=== PATIENT | male | born 1950 | race Caucasian/White ===

== ENCOUNTER 2016-11-28 18:29 | Emergency (ER) | payer OTHER ==
--- NOTE | 2016-11-28 21:24 | ED ORDER SUMMARY ---
..... Patient: MARIA ELENA MCCALL OrderSheet [facility] VisitID: [id number] [place] [address] 66y, M Registration Date/Time: 11/28/2016 ORDER SHEET Weight: 90.2 kg (stated) Allergies: Penicillins GENERAL ORDERS: CBC w Diff Urgent (18:58 11/28/2016 KHoerner verbal order read back to Bartolome Luna) (Cancelled: Wrong Jenpiaq54:59 KHoerner) CMP Urgent (18:58 11/28/2016 KHoerner verbal order read back to Bartolome Luna) (Cancelled: Wrong [id number] KHoerner) TSH Urgent (18:58 11/28/2016 KHoerner verbal order read back to Bartolome Luna) (Cancelled: Wrong Vfpubop84:59 KHoerner) EKG - ER Stat (18:58 11/28/2016 KHoerner verbal order read back to Bartolome Luna) (Cancelled: Wrong Uvkvvxh23:59 KHoerner) CBC w Diff Urgent (18:59 11/28/2016 Bartolome Luna) (Ack 19:01 KHoerner) (19:24 KKnebel R.N.) CMP Urgent (18:59 11/28/2016 Bartolome Luna) (Ack 19:01 TRINAoerner) (19:24 KKnebel R.N.) UA-Culture if indicated Urgent (18:59 11/28/2016 Bartolome Luna) (Ack 19:01 TRINAoerner) (Cancelled: Unable to Qifttuu32:07 JRomanelli R.N.) Amylase Urgent (18:59 11/28/2016 Bartolome Luna) (Ack 19:01 TRINAoerner) (19:24 KKnebel R.N.) Lipase Urgent (18:59 11/28/2016 Bartolome Luna) (Ack 19:01 TRINAoerner) (19:24 KKnebel R.N.) US Abdomen Limited (Yes) (GB/Liver) Urgent (20:12 11/28/2016 Bartolome Luna) (Ack 20:14 [facility] (21:30 JRomanelli R.N.) Chest 2V Urgent (20:31 11/28/2016 Bartolome Luna) (Ack 20:33 CHagerty ER Magneto Specialist) (20:46 [facility] Blood Culture (No) (N/A) Urgent (20:48 11/28/2016 Bartolome Luna) (Ack 20:50 CHagerty ER Magneto Specialist) (21:20 CHagerty ER Magneto Specialist) Lactic Acid for Sepsis Protocol Urgent (20:49 11/28/2016 Bartolome Luna) (Ack 20:50 CHagerty ER Magneto Specialist) (21:20 CHagerty ER Magneto Specialist) PCT (Procalcitonin) Urgent (20:49 11/28/2016 Bartolome Luna) (Ack 20:50 CHagerty ER Magneto Specialist) (21:20 CHagerty ER Magneto Specialist) MEDICATION ORDERS: IV FLUIDS: IV NS : initial bolus 1000 mL (1000 mL/hr), then 1000 mL/hr for X1 (NOW) (18:58 11/28/2016 Bartolome Luna) (19:48 Mayo R.N.) Zofran IV 4 mg (NOW) (18:59 11/28/2016 Bartolome Luna) (19:49 Mayo R.N.) Famotidine IV 20 mg/50mL (NOW) (18:59 11/28/2016 Bartolome Luna) (19:49 Mayo R.N.) Toradol IV 30 mg (NOW) (20:31 11/28/2016 Bartolome Luna) (20:53 KyQuiveyvan R.N.) Azithromycin IV 500 mg/250 mL (NOW) (20:50 11/28/2016 Bartolome Luna) (21:30 Mayo R.N.) ORDER SHEET NOTES: [Electronically signed by Abdirahman Engle R.N. (23:09 11/28/2016)] [Electronically signed by Bo Saravia Dr. (08:37 11/29/2016)] [Electronically locked/signed by Abdirahman Engle R.N. (23:09 11/28/2016)]
--- NOTE | 2016-11-28 21:24 | ED ORDER SUMMARY ---
..... Patient: MARIA ELENA MCCALL OrderSheet [facility] VisitID: [id number] [place] [address] 66y, M Registration Date/Time: 11/28/2016 ORDER SHEET Weight: 90.2 kg (stated) Allergies: Penicillins GENERAL ORDERS: CBC w Diff Urgent (18:58 11/28/2016 KHoerner verbal order read back to Bartolome Luna) (Cancelled: Wrong Uqyvmqi01:59 KHoerner) CMP Urgent (18:58 11/28/2016 KHoerner verbal order read back to Bartolome Luna) (Cancelled: Wrong Uoqqynz30:59 KHoerner) TSH Urgent (18:58 11/28/2016 KHoerner verbal order read back to Bartolome Luna) (Cancelled: Wrong Wfhotqk06:59 KHoerner) EKG - ER Stat (18:58 11/28/2016 KHoerner verbal order read back to Bartolome Luna) (Cancelled: Wrong Tkkepdn57:59 KHoerner) CBC w Diff Urgent (18:59 11/28/2016 Bartolome Luna) (Ack 19:01 KHoerner) (19:24 KKnebel R.N.) CMP Urgent (18:59 11/28/2016 Bartolome Luna) (Ack 19:01 TRINAoerner) (19:24 KKnebel R.N.) UA-Culture if indicated Urgent (18:59 11/28/2016 Bartolome Luna) (Ack 19:01 TRINAoerner) (Cancelled: Unable to Waymdmd07:07 JRomanelli R.N.) Amylase Urgent (18:59 11/28/2016 Bartolome Luna) (Ack 19:01 TRINAoerner) (19:24 KKnebel R.N.) Lipase Urgent (18:59 11/28/2016 Bartolome Luna) (Ack 19:01 TRINAoerner) (19:24 KKnebel R.N.) US Abdomen Limited (Yes) (GB/Liver) Urgent (20:12 11/28/2016 Bartolome Luna) (Ack 20:[address] [facility] Track Machine Operator Repairer) (21:30 JRomanelli R.N.) Chest 2V Urgent (20:31 11/28/2016 Bartolome Luna) (Ack 20:33 [facility]agerty ER Track Machine Operator Repairer) (20:46 [facility] Blood Culture (No) (N/A) Urgent (20:48 11/28/2016 Bartolome Luna) (Ack 20:50 CHagerty ER Track Machine Operator Repairer) (21:20 CHagerty ER Track Machine Operator Repairer) Lactic Acid for Sepsis Protocol Urgent (20:49 11/28/2016 Bartolome Luna) (Ack 20:50 CHagerty ER Track Machine Operator Repairer) (21:20 CHagerty ER Track Machine Operator Repairer) PCT (Procalcitonin) Urgent (20:49 11/28/2016 Bartolome Luna) (Ack 20:50 CHagerty ER Track Machine Operator Repairer) (21:20 CHagerty ER Track Machine Operator Repairer) MEDICATION ORDERS: IV FLUIDS: IV NS : initial bolus 1000 mL (1000 mL/hr), then 1000 mL/hr for X1 (NOW) (18:58 11/28/2016 Bartolome Luna) (19:48 Mayo R.N.) Zofran IV 4 mg (NOW) (18:59 11/28/2016 Bartolome Luna) (19:49 Mayo R.N.) Famotidine IV 20 mg/50mL (NOW) (18:59 11/28/2016 Bartolome Luna) (19:49 Mayo R.N.) Toradol IV 30 mg (NOW) (20:31 11/28/2016 Bartolome Luna) (20:53 yKQuiveyvan R.N.) Azithromycin IV 500 mg/250 mL (NOW) (20:50 11/28/2016 Bartolome Luna) (21:30 Mayo R.N.) ORDER SHEET NOTES: [Electronically signed by Abdirahman Engle R.N. (23:09 11/28/2016)] [Electronically signed by Bo Saravia Dr. (08:37 11/29/2016)] [Electronically locked/signed by Abdirahman Engle R.N. (23:09 11/28/2016)]
--- NOTE | 2016-11-28 21:24 | ED CLINICAL REPORT ---
Clinical Report - Physicians/Mid Levels [facility] [address] [place] [address] 11/28/2016 18:31 Patient: MARIA ELENA MCCALL Time Seen: 18:45; initial patient contact. Arrived- By private vehicle. Historian- patient. HISTORY OF PRESENT ILLNESS Chief Complaint: VOMITING. This started about 1 1/2 weeks ago and is still present. It was gradual in onset and has been intermittent. The patient has had nausea and vomiting. No diarrhea, black stools, bloody stools, abdominal pain or constipation. Last bowel movement: today. The illness is described as moderate. Similar symptoms previously: None. Recent medical care: The patient was seen recently in the office (Yesterday, IVF and labs, nl WBC and mildly elevated bili). REVIEW OF SYSTEMS The patient has had fever, muscle aches and a headache. No difficulty with urination, dark urine, dizziness, cough or chest pain. No difficulty breathing. All systems otherwise negative, except as recorded above. PAST HISTORY Hypertension. Environmental Allergies. Thyroid Disease. Benign Prostatic Hypertrophy. Urinary Calculi. Constipation. Ureterolithiasis. Diverticulosis. Diverticulitis. Renal Colic. Hypothyroidism. Nephrolithiasis. Additional Surgeries: no known surgeries. Medications: Citalopram Hydrobromide Oral. Finasteride Oral. Levothyroxine Sodium Oral. Tamsulosin HCl Oral. Aspirin Oral. Allergies: Penicillins. SOCIAL HISTORY Never smoker. Occasional alcohol use. No drug use. ADDITIONAL NOTES The nursing notes have been reviewed. PHYSICAL EXAM Vital Signs: 11/28/2016 18:37 BP: 147/78. HR: 86. RR: 20. O2 saturation: 94%. Temp: 100.7 F. Pain level now: 310. Have been reviewed. Hypertensive. Heart rate normal. Respiratory rate normal. Febrile. Oxygen saturation low. Appearance: Alert. Oriented X3. No acute distress. Eyes: Eyes normal inspection. No scleral icterus. ENT: Dry mucous membranes present. CVS: Normal heart rate and rhythm. Heart sounds normal. Respiratory: No respiratory distress. Moderate rales in the right lung base posteriorly. Abdomen: Soft and nontender. Bowel sounds normal. No organomegaly. No mass. Skin: Skin warm and dry. Normal skin color. No rash. Extremities: No lower extremity edema. Neuro: Oriented X 3. LABS, X-RAYS, AND EKG Chest X-ray: Diffuse infiltrate in the right lower lobe. Consistent with pneumonia. Views: PA and lateral. Technique: good. The X-rays were independently viewed by me and interpreted contemporaneously by me. Prior films were not available for comparison. Abdominal Sonogram: Normal study. Fatty liver is present. The gallbladder is normal. Common duct is normal. Study included the gallbladder. Prior studies were not available for comparison. The study was interpreted by the radiologist and discussed with the radiologist. Laboratory Tests: CBC w Diff: (JESSICA: 11/28/2016 19:15) ( [facility] 11/28/2016 19:51) Final results Test Result Flag Units (Reference) WHITE BLOOD COUNT 6.2 K/uL (4.5-11.5) RED BLOOD COUNT 4.31 L M/uL (4.50-5.90) HEMOGLOBIN 13.2 L gm/dL (13.5-17.5) HEMATOCRIT 39.3 L % (41.0-53.0) MEAN CELL VOLUME 91 fL (80-100) MEAN CORPUSCULAR HGB 31 pg (26-34) MEAN CORPUSCULAR HGB CONC 34 g/dL (31-37) RED CELL DISTRIBUTION WIDTH 13.3 % (11.6-14.8) PLATELET COUNT 170 K/uL (150-400) NEUTROPHIL % 87.0 H % (50-75) LYMPH % 6.6 L % (25-40) MONO % 6.4 % (3-14) EOSINOPHIL % 0 % (0-4) BASOPHIL % 0 % (0-2) CMP: (JESSICA: 11/28/2016 19:15) ( MsgRcvd 11/28/2016 19:43) Final results Test Result Flag Units (Reference) GLUCOSE 106 mg/dL (70-110) BUN 21 H mg/dL (7-18) CREATININE 1.1 mg/dL (0.6-1.3) Estimated GFR >60 mL/min Estimated GFR- >60 mL/min Note: Persistent reduction over 3 months in eGFR<60 mL/min/1.73 m2 defines CKD. Patients with eGFR values>=60 mL/min/1.73 m2 may also have CKD if evidence ofpersistent proteinuria. Additional information may be foundat www.[email or web address].org. SODIUM 129 L mmol/L (136-145) POTASSIUM 3.7 mmol/L (3.5-5.1) CHLORIDE 94 L mmol/L (98-107) CARBON DIOXIDE 24 mmol/L (21-32) CALCIUM 8.4 L mg/dL (8.5-10.1) TOTAL PROTEIN 7.2 g/dL (6.4-8.2) ALBUMIN 3.1 L g/dL (3.3-5.0) BILIRUBIN, TOTAL 1.6 H mg/dL (0.0-1.0) ALKALINE PHOSPHATASE 95 U/L (46-116) AST (SGOT) 74 H U/L (15-37) ALT (SGPT) 99 H U/L (12-78) LIPASE 181 U/L (73-393) AMYLASE 54 U/L (25-115) . Pulse Oximetry: 11/28/2016 21:23 O2 saturation: 96%. (FIO2 - room air). Interpretation: normal. PROGRESS AND PROCEDURES Disposition: Discharged home in good and improved condition. Condition: good. CLINICAL IMPRESSION Bacterial pneumonia. Empiric antibiotics given in the ED and prescribed. Mild nausea with vomiting. INSTRUCTIONS Your Current Medications: CONTINUE TAKING THE FOLLOWING MEDICATIONS: Aspirin Oral. Citalopram Hydrobromide Oral. Finasteride Oral. Levothyroxine Sodium Oral. Tamsulosin HCl Oral. Prescription Medications: Zofran (orally disintegrating tablets) 4 mg: take 1 orally every 6 hours as needed for nausea and vomiting. Dispense ten (10). Two refills. Substitution is permissible. Azithromycin 250 mg tablets: take 1 orally every day for 4 days. Total course 4 days. No refills. (Loading dose given in ED) Follow-up: Follow up with your doctor in about three days. Call for an appointment. Screening today revealed the patient's blood pressure to be in the pre-hypertensive range. The patient should follow up with a primary care provider for blood pressure management. (Electronically signed by Bo Saravia Dr. 11/29/2016 8:37)
--- NOTE | 2016-11-28 21:24 | ED NURSING NOTES ---
Clinical Report - Nurses [facility] [address] [place] [place] [address] 11/28/2016 18:31 Patient: MARIA ELENA MCCALL TRIAGE Triage time 18:37. Acuity: LEVEL 3. Chief Complaint: (Nausea, vomiting, fever, chills with rigors; onset Thursday.). SEPSIS SCREEN: Sepsis Screen. Negative (no infection suspected/documented). LISA COMA SCORE: [place] Coma Scale: 15- eyes open spontaneously (4); best verbal response- oriented x 4 (5); best motor response- obeys commands (6). --18:43 Fran Fu R.N. 18:37 11/28/16. BP: 147/78 (regular adult cuff) taken on the left arm, while sitting. HR: 86. RR: 20. O2 saturation: 94% on room air. Temp: 100.7 F (oral). Pain level now: 08/15. --18:43 Fran Fu R.N. late entry -18:40. --18:46 Fran Fu R.N. Weight: 90.2 kg stated. Height/Length: 68 inches Per Patient. BMI: 30.2. --18:42 Fran Fu R.N. Medications Aspirin Oral. --18:40 Fran Fu R.N. Tamsulosin HCl Oral. --18:40 Fran Fu R.N. Levothyroxine Sodium Oral. --18:40 Fran Fu R.N. Finasteride Oral. --18:40 Fran Fu R.N. Citalopram Hydrobromide Oral. --18:40 Fran Fu R.N. Allergies Penicillins. --18:38 Fran Fu R.N. History Arrived by private vehicle. Historian: patient. Accompanied by family. SOCIAL HX: Never smoker. Occasional alcohol use. No drug use. ABUSE ASSESSMENT: No report of abuse. --18:43 Fran Fu R.N. ( Pt was seen at the [facility] yesterday and was given Zofran and NS 500ml iv.). --18:46 Fran Fu R.N. PROBLEMS: Hypertension. Environmental Allergies. Thyroid Disease. Benign Prostatic Hypertrophy. Urinary Calculi. Constipation. Ureterolithiasis. Diverticulosis. Diverticulitis. Renal Colic. Hypothyroidism. Nephrolithiasis. --18:41 Fran Fu R.N. ADDITIONAL SURGERIES: no known surgeries. Interventions ID band on patient. To treatment room. --18:43 Fran Fu R.N. NURSING PROGRESS NOTES 19:24 11/28/2016 Site #1 started via IV in the right hand with an 20g angiocath, with aseptic technique and good blood return; one attempt. Blood drawn: rainbow set. Labeled in the presence of the patient and sent to the lab. Saline lock flushed with 10 mL saline. --19:24 Ondina Schreiber R.N. 19:38 11/28/2016 Started bag #1 1000 mL IV Fluids IV NS (Saline); at 999 mL/hr over 60 minute(s) via site #1 via IV pump. Allergies verified and confirmed 5 rights. IV patency established. IV site checked: no pain, redness, or swelling. IV flushed thoroughly pre- and post-medication administration. --19:48 Abdirahman Engle R.N. 19:39 11/28/2016 Zofran (Ondansetron HCl) IVP 4 mg given over 2 minute(s) via site #1. Allergies verified and confirmed 5 rights. IV patency established. IV site checked: no pain, redness, or swelling. IV flushed thoroughly pre- and post-medication administration. IVP given by RN. --19:49 Abdirahman Engle R.N. 19:44 11/28/2016 Famotidine IVP 20 mg given over 20 minute(s) via site #1. Allergies verified and confirmed 5 rights. IV patency established. IV site checked: no pain, redness, or swelling. IV flushed thoroughly pre- and post-medication administration. IVP given by RN. --19:49 Abdirahman Engle R.N. 20:15 11/28/16. BP: 133/54. HR: 87. RR: 18. O2 saturation: 92%. Temp: 103.7 F. --20:17 Abdirahman Engle R.N. 20:48 11/28/2016 IV Fluids IV NS Bag Change: bag #1 infused. Total amount infused: 1000. STARTED bag #2 at 1000 mL/hr via IV pump. IV patency established. IV site checked: no pain, redness, or swelling. IV flushed thoroughly. --20:53 Abdirahman Hanks R.N. 20:50 11/28/2016 Toradol IVP 30 mg given over 2 minute(s) via site #1. Allergies verified and confirmed 5 rights. IV patency established. IV site checked: no pain, redness, or swelling. IV flushed thoroughly pre- and post-medication administration. --20:53 Abdirahman Hanks R.N. 21:17 11/28/16. BP: 124/62. HR: 81. RR: 16. O2 saturation: 95%. --21:17 Abdirahman Engle R.N. 21:25 11/28/2016 Started 500 mg of Azithromycin IVPB in bag #1 250 mL; at 250 mL/hr over 60 minute(s) via site #1 via IV pump. Allergies verified and confirmed 5 rights. IV patency established. IV site checked: no pain, redness, or swelling. IV flushed thoroughly pre- and post-medication administration. --21:30 Abdirahman Engle R.N. 20:05. ( Famotidine 20 mg IVPB completed/infused). --21:38 Abdirahman Engle R.N. 22:30 11/28/2016 IV Fluids IV NS Discontinued: bag #2 infused. Total amount infused: 1000 mL. IV patency established. IV site checked: no pain, redness, or swelling. IV flushed thoroughly. --23:02 Abdirahman Engle R.N. 22:30 11/28/2016 Azithromycin IVPB Discontinued: bag #1 infused upon discharge. Total amount infused: 250 mL. IV patency established. IV site checked: no pain, redness, or swelling. IV flushed thoroughly. --23:08 Abdirahman Engle R.N. 22:50 11/28/2016 Site #1 removed upon discharge. Catheter intact. Manual pressure and bandage applied. --23:05 Abdirahman Engle R.N. DISPOSITION / DISCHARGE 22:45 11/28/16. BP: 107/65. HR: 75. RR: 16. O2 saturation: 95% on room air. Temp: 101.3 F. Pain level now: 0/10. --22:58 Abdirahman Engle R.N. Departure time: 2250. --22:59 Abdirahman Engle R.N. 22:50. Condition at departure: improved. No learning barriers present. Discharge instructions provided and reviewed with the patient. Reviewed medication(s) (prescription given to pt's ). Reviewed referral to family practice for followup. Patient verbalized understanding. Written instructions provided in Moroccan. The patient was discharged by the physician. He was discharged home and accompanied by spouse. He left the Emergency Department ambulatory and via private vehicle. Spouse driving. --23:00 Abdirahman Engle R.N. Locked/Released at 11/28/2016 23:09 by Abdirahman Engle R.N.
--- NOTE | 2016-11-28 22:03 | DIAGNOSTIC IMAGING REPORT ---
PROCEDURE: XR CHEST 2 VIEW INDICATION: COUGH, fever, nausea, vomiting. TECHNIQUE: Two views. COMPARISON: None. FINDINGS: The cardiomediastinal contour and central vasculature are within normal limits. Strand-like alveolar density right posterior lateral lower lung. Minor irregularity blunting the lateral costophrenic angle and posteriorly. There is mild, smooth lobulation of the right lateral pleural surface and to a lesser extent, the left. Left lung is clear. There are osseous deformities of multiple bilateral remote, healed lateral rib fractures. Hypertrophy of the right distal clavicle. IMPRESSION: 1. Strandy alveolar opacity and slight pleural irregularity right posterolateral lung base. This may be pneumonia or atelectatic change. 2. Mild bilateral pleural irregularity and lateral chest wall deformities, likely related to remote bilateral chest trauma.
--- NOTE | 2016-11-28 22:07 | DIAGNOSTIC IMAGING REPORT ---
PROCEDURE: US ABDOMEN ULTRASOUND-LIMITED INDICATION: ABNORMAL LFT TECHNIQUE: Oconnor scale and color Doppler sonographic images were obtained of the right upper quadrant. COMPARISON: CT abdomen pelvis 04/06/2015 FINDINGS: The liver is normal size and slightly diffusely hyperechoic in echo texture. No mass or biliary dilatation. The gallbladder is normal without stones or sludge. Normal wall thickness at 1.8 mm. The common duct is normal size at 2.3 mm. No pericholecystic fluid or Reddy's sign. The visible portion of the inferior vena cava, abdominal aorta, and portal vein appear normal with appropriate direction of flow in the portal vein. The right kidney is normal measuring 11.7 cm. No free fluid in the right upper quadrant. IMPRESSION: 1. Mild hepatic steatosis or other intrinsic liver disease. 2. Normal gallbladder.
--- NOTE | 2016-11-29 08:37 | ED DISCHARGE INSTRUCTIONS ---
Patient: MARIA ELENA MCCALL General Instructions [facility] VisitID: [id number] [place] [address] 66y, M Registration Date/Time: 11/28/2016 Bacterial pneumonia. Empiric antibiotics given in the ED and prescribed. Mild nausea with vomiting. INSTRUCTIONS Your Current Medications: CONTINUE TAKING THE FOLLOWING MEDICATIONS: Aspirin Oral. Citalopram Hydrobromide Oral. Finasteride Oral. Levothyroxine Sodium Oral. Tamsulosin HCl Oral. Prescription Medications: Zofran (orally disintegrating tablets) 4 mg: take 1 orally every 6 hours as needed for nausea and vomiting. Dispense ten (10). Two refills. Substitution is permissible. Azithromycin 250 mg tablets: take 1 orally every day for 4 days. Total course 4 days. No refills. (Loading dose given in ED) Follow-up: Follow up with your doctor in about three days. Call for an appointment. Screening today revealed the patient's blood pressure to be in the pre-hypertensive range. The patient should follow up with a primary care provider for blood pressure management. ADDITIONAL INFORMATION Pneumonia (Adult) Pneumonia is an infection deep within the lung, in the small air sacs (alveoli). It may be due to a virus or bacteria and is usually treated with an antibiotic. Severe cases require treatment in the hospital. Milder cases can be treated at home. Symptoms usually start to improve during the first2 days of treatment. Home Care: Rest at home for the first 23 days or until you feel stronger. When resuming activity, dont let yourself become overly tired. Avoid exposure to cigarette smoke (yours or others). You may use acetaminophen (Tylenol) or ibuprofen (Motrin, Advil) to control fever or pain, unless another medicine was prescribed. [NOTE: If you have chronic liver or kidney disease or ever had a stomach ulcer or GI bleeding, talk with your doctor before using these medicines.] (Aspirin should never be used in anyone under 18 years of age who is ill with a fever. It may cause severe liver damage.) Your appetite may be poor so a light diet is fine. Keep well hydrated by drinking 68 glasses of fluids per day (water, sport drinks such as Gatorade, sodas without caffeine, juices, tea, soup, etc.). This will help loosen secretions in the lung, making it easier for you to cough up the phlegm (sputum). If you also have heart or kidney disease, check with your doctor before you drink extra amounts of fluids. Finish all antibiotic medicine prescribed, even if you are feeling better after a few days. Follow Up with your doctor in the next 23 days (or as advised) to be sure you are responding properly to the medicine. [NOTE: If you are age 65 or older, or if you have chronic lung disease (asthma, emphysema or COPD), we recommendthe pneumococcal vaccination and a yearlyinfluenzavaccination(flu-shot) every . Ask your doctor about this.] Get Prompt Medical Attention if any of the following occur: Not getting better within the first 48 hours of treatment Increasing shortness of breath or rapid breathing (over 25 breaths/minute) Coughing up blood or increasing chest pain with breathing Fever of 100.4F (38C) oral or higher, not better with fever medication Increasing weakness, dizziness or fainting Increasing thirst or dry mouth Sinus pain, headache or a stiff neck Chest pain not caused by coughing Ondansetron Oral disintegrating tablet What is this medicine? ONDANSETRON (on TORI se gama) is used to treat nausea and vomiting caused by chemotherapy. It is also used to prevent or treat nausea and vomiting after surgery. How should I use this medicine? These tablets are made to dissolve in the mouth. Do not try to push the tablet through the foil backing. With dry hands, peel away the foil backing and gently remove the tablet. Place the tablet in the mouth and allow it to dissolve, then swallow. While you may take these tablets with water, it is not necessary to do so. Talk to your deputy director of finance regarding the use of this medicine in children. Special care may be needed. What side effects may I notice from receiving this medicine? Side effects that you should report to your doctor or health youth care specialist as soon as possible: allergic reactions like skin rash, itching or hives, swelling of the face, lips, or tongue breathing problems dizziness fast or irregular heartbeat feeling faint or lightheaded, falls fever and chills swelling of the hands and feet tightness in the chest Side effects that usually do not require medical attention (report to your doctor or health youth care specialist if they continue or are bothersome): constipation or diarrhea headache What may interact with this medicine? Do not take this medicine with any of the following medications: -apomorphine -cisapride -dofetilide -dronedarone -pimozide -thioridazine -ziprasidone This medicine may also interact with the following medications: -carbamazepine -phenytoin -rifampicin -tramadol -other medicines that prolong the QT interval (cause an abnormal heart rhythm) What if I miss a dose? If you miss a dose, take it as soon as you can. If it is almost time for your next dose, take only that dose. Do not take double or extra doses. Where should I keep my medicine? Keep out of the reach of children. Store between 2 and 30 degrees C (36 and 86 degrees F). Throw away any unused medicine after the expiration date. What should I tell my health care provider before I take this medicine? They need to know if you have any of these conditions: heart disease history of irregular heartbeat liver disease low levels of magnesium or potassium in the blood an unusual or allergic reaction to ondansetron, granisetron, other medicines, foods, dyes, or preservatives or trying to get breast-feeding What should I watch for while using this medicine? Check with your doctor or health youth care specialist as soon as you can if you have any sign of an allergic reaction. Azithromycin Oral tablet What is this medicine? AZITHROMYCIN (az ith mehul DAS sin) is a macrolide antibiotic. It is used to treat or prevent certain kinds of bacterial infections. It will not work for colds, flu, or other viral infections. How should I use this medicine? Take this medicine by mouth with a full glass of water. Follow the directions on the prescription label. The tablets can be taken with food or on an empty stomach. If the medicine upsets your stomach, take it with food. Take your medicine at regular intervals. Do not take your medicine more often than directed. Take all of your medicine as directed even if you think your are better. Do not skip doses or stop your medicine early. Talk to your deputy director of finance regarding the use of this medicine in children. Special care may be needed. What side effects may I notice from receiving this medicine? Side effects that you should report to your doctor or health youth care specialist as soon as possible: allergic reactions like skin rash, itching or hives, swelling of the face, lips, or tongue confusion, nightmares or hallucinations dark urine difficulty breathing hearing loss irregular heartbeat or chest pain pain or difficulty passing urine redness, blistering, peeling or loosening of the skin, including inside the mouth white patches or sores in the mouth yellowing of the eyes or skin Side effects that usually do not require medical attention (report to your doctor or health youth care specialist if they continue or are bothersome): diarrhea dizziness, drowsiness headache stomach upset or vomiting tooth discoloration vaginal irritation What may interact with this medicine? Do not take this medicine with any of the following medications: lincomycin This medicine may also interact with the following medications: amiodarone antacids cyclosporine digoxin magnesium nelfinavir phenytoin warfarin What if I miss a dose? If you miss a dose, take it as soon as you can. If it is almost time for your next dose, take only that dose. Do not take double or extra doses. Where should I keep my medicine? Keep out of the reach of children. Store at room temperature between 15 and 30 degrees C (59 and 86 degrees F). Throw away any unused medicine after the expiration date. What should I tell my health care provider before I take this medicine? They need to know if you have any of these conditions: kidney disease liver disease irregular heartbeat or heart disease an unusual or allergic reaction to azithromycin, erythromycin, other macrolide antibiotics, foods, dyes, or preservatives or trying to get breast-feeding What should I watch for while using this medicine? Tell your doctor or health youth care specialist if your symptoms do not improve. Do not treat diarrhea with over the counter products. Contact your doctor if you have diarrhea that lasts more than 2 days or if it is severe and watery. This medicine can make you more sensitive to the sun. Keep out of the sun. If you cannot avoid being in the sun, wear protective clothing and use sunscreen. Do not use sun lamps or tanning beds/booths. You have been given the following additional information: Pneumonia (Adult) Ondansetron Oral disintegrating tablet Azithromycin Oral tablet (Electronically signed by Bo Saravia Dr. 11/29/2016 8:37)
--- NOTE | 2016-11-29 08:37 | ED MAR SUMMARY ---
..... Medication Administration Record [facility] [address] [address] Patient: MARIA ELENA MCCALL Visit ID: [id number] 66y, M Weight: 90.2 kg Height/Length: 68 in BMI: 30.2 ALLERGIES: Penicillins Start 19:38 11/28/2016 Abdirahman Engle R.N., Stop 22:30 11/28/2016 Abdirahman Engle R.N. Medication Administered: IV NS (SALINE), Dose: IV Fluids over 60 minute(s), Rate: 999 mL/hr, Dispensed: 1000 mL bag, Site: #1 right hand. Medication Ordered: IV NS : initial bolus 1000 mL (1000 mL/hr), then 1000 mL/hr for X1 (NOW). Given 19:39 11/28/2016 Abdirahman Engle R.N. Medication Administered: ZOFRAN [IVP] (ONDANSETRON HCL), Dose: 4 mg IVP over 2 minute(s), Site: #1 right hand. Medication Ordered: Zofran IV 4 mg (NOW). Given 19:44 11/28/2016 Abdirahman Engle R.NJacqueline Medication Administered: FAMOTIDINE [IVP], Dose: 20 mg IVP over 20 minute(s), Site: #1 right hand. Medication Ordered: Famotidine IV 20 mg/50mL (NOW). Given 20:50 11/28/2016 Abdirahman Hanks R.N. Medication Administered: TORADOL [IVP], Dose: 30 mg IVP over 2 minute(s), Site: #1 right hand. Medication Ordered: Toradol IV 30 mg (NOW). Start 21:25 11/28/2016 Abdirahman Engle R.N., Stop 22:30 11/28/2016 Abdirahman Engle R.N. Medication Administered: AZITHROMYCIN [IVPB], Dose: 500 mg IVPB over 60 minute(s), Rate: 250 mL/hr, Dispensed: 250 mL bag, Site: #1 right hand. Medication Ordered: Azithromycin IV 500 mg/250 mL (NOW).
--- NOTE | 2016-11-29 08:37 | ED MED RECONCILIATION SUMMARY ---
Patient: MARIA ELENA MCCALL Medication Reconciliation Report [facility] VisitID: [id number] [place] [address] 66y, M Registration Date/Time: 11/28/2016 Weight: 90.2 kg Height/Length: 68 in. BMI: 30.2 ALLERGIES: Penicillins The patient's Home Medications are listed below: CONTINUE TAKING THE FOLLOWING MEDICATIONS: Aspirin Oral Citalopram Hydrobromide Oral Finasteride Oral Levothyroxine Sodium Oral Tamsulosin HCl Oral The source(s) of the original Home Medication information: Not obtained. The following Medications were given to the patient in the Emergency Department: IV NS IV Fluids bolus 0, then 999 mL/hr, administered: 11/28/2016 7:38:00 PM Zofran [IVP] IVP 4 mg, administered: 11/28/2016 7:39:00 PM Famotidine [IVP] IVP 20 mg, administered: 11/28/2016 7:44:00 PM Toradol [IVP] IVP 30 mg, administered: 11/28/2016 8:50:00 PM Azithromycin [IVPB] IVPB bolus 0, then 500 mg 250 mL/hr, administered: 11/28/2016 9:25:00 PM The following Medications were prescribed to the patient: Zofran (orally disintegrating tablets) 4 mg: take 1 orally every 6 hours as needed for nausea and vomiting. Dispense ten (10). Two refills. Substitution is permissible. -- Bo Saravia Dr. Azithromycin 250 mg tablets: take 1 orally every day for 4 days. Total course 4 days. No refills.(Loading dose given in ED) -- Bo Saravia Dr.
--- NOTE | 2016-11-29 08:37 | ED DISCHARGE INSTRUCTIONS ---
Patient: MARIA ELENA MCCALL General Instructions [facility] VisitID: [id number] [place] [address] 66y, M Registration Date/Time: 11/28/2016 Bacterial pneumonia. Empiric antibiotics given in the ED and prescribed. Mild nausea with vomiting. INSTRUCTIONS Your Current Medications: CONTINUE TAKING THE FOLLOWING MEDICATIONS: Aspirin Oral. Citalopram Hydrobromide Oral. Finasteride Oral. Levothyroxine Sodium Oral. Tamsulosin HCl Oral. Prescription Medications: Zofran (orally disintegrating tablets) 4 mg: take 1 orally every 6 hours as needed for nausea and vomiting. Dispense ten (10). Two refills. Substitution is permissible. Azithromycin 250 mg tablets: take 1 orally every day for 4 days. Total course 4 days. No refills. (Loading dose given in ED) Follow-up: Follow up with your doctor in about three days. Call for an appointment. Screening today revealed the patient's blood pressure to be in the pre-hypertensive range. The patient should follow up with a primary care provider for blood pressure management. ADDITIONAL INFORMATION Pneumonia (Adult) Pneumonia is an infection deep within the lung, in the small air sacs (alveoli). It may be due to a virus or bacteria and is usually treated with an antibiotic. Severe cases require treatment in the hospital. Milder cases can be treated at home. Symptoms usually start to improve during the first2 days of treatment. Home Care: Rest at home for the first 23 days or until you feel stronger. When resuming activity, dont let yourself become overly tired. Avoid exposure to cigarette smoke (yours or others). You may use acetaminophen (Tylenol) or ibuprofen (Motrin, Advil) to control fever or pain, unless another medicine was prescribed. [NOTE: If you have chronic liver or kidney disease or ever had a stomach ulcer or GI bleeding, talk with your doctor before using these medicines.] (Aspirin should never be used in anyone under 18 years of age who is ill with a fever. It may cause severe liver damage.) Your appetite may be poor so a light diet is fine. Keep well hydrated by drinking 68 glasses of fluids per day (water, sport drinks such as Gatorade, sodas without caffeine, juices, tea, soup, etc.). This will help loosen secretions in the lung, making it easier for you to cough up the phlegm (sputum). If you also have heart or kidney disease, check with your doctor before you drink extra amounts of fluids. Finish all antibiotic medicine prescribed, even if you are feeling better after a few days. Follow Up with your doctor in the next 23 days (or as advised) to be sure you are responding properly to the medicine. [NOTE: If you are age 65 or older, or if you have chronic lung disease (asthma, emphysema or COPD), we recommendthe pneumococcal vaccination and a yearlyinfluenzavaccination(flu-shot) every . Ask your doctor about this.] Get Prompt Medical Attention if any of the following occur: Not getting better within the first 48 hours of treatment Increasing shortness of breath or rapid breathing (over 25 breaths/minute) Coughing up blood or increasing chest pain with breathing Fever of 100.4F (38C) oral or higher, not better with fever medication Increasing weakness, dizziness or fainting Increasing thirst or dry mouth Sinus pain, headache or a stiff neck Chest pain not caused by coughing Ondansetron Oral disintegrating tablet What is this medicine? ONDANSETRON (on TORI se gama) is used to treat nausea and vomiting caused by chemotherapy. It is also used to prevent or treat nausea and vomiting after surgery. How should I use this medicine? These tablets are made to dissolve in the mouth. Do not try to push the tablet through the foil backing. With dry hands, peel away the foil backing and gently remove the tablet. Place the tablet in the mouth and allow it to dissolve, then swallow. While you may take these tablets with water, it is not necessary to do so. Talk to your manager lpn regarding the use of this medicine in children. Special care may be needed. What side effects may I notice from receiving this medicine? Side effects that you should report to your doctor or health direct care staffer as soon as possible: allergic reactions like skin rash, itching or hives, swelling of the face, lips, or tongue breathing problems dizziness fast or irregular heartbeat feeling faint or lightheaded, falls fever and chills swelling of the hands and feet tightness in the chest Side effects that usually do not require medical attention (report to your doctor or health direct care staffer if they continue or are bothersome): constipation or diarrhea headache What may interact with this medicine? Do not take this medicine with any of the following medications: -apomorphine -cisapride -dofetilide -dronedarone -pimozide -thioridazine -ziprasidone This medicine may also interact with the following medications: -carbamazepine -phenytoin -rifampicin -tramadol -other medicines that prolong the QT interval (cause an abnormal heart rhythm) What if I miss a dose? If you miss a dose, take it as soon as you can. If it is almost time for your next dose, take only that dose. Do not take double or extra doses. Where should I keep my medicine? Keep out of the reach of children. Store between 2 and 30 degrees C (36 and 86 degrees F). Throw away any unused medicine after the expiration date. What should I tell my health care provider before I take this medicine? They need to know if you have any of these conditions: heart disease history of irregular heartbeat liver disease low levels of magnesium or potassium in the blood an unusual or allergic reaction to ondansetron, granisetron, other medicines, foods, dyes, or preservatives or trying to get breast-feeding What should I watch for while using this medicine? Check with your doctor or health direct care staffer as soon as you can if you have any sign of an allergic reaction. Azithromycin Oral tablet What is this medicine? AZITHROMYCIN (az ith mehul DAS sin) is a macrolide antibiotic. It is used to treat or prevent certain kinds of bacterial infections. It will not work for colds, flu, or other viral infections. How should I use this medicine? Take this medicine by mouth with a full glass of water. Follow the directions on the prescription label. The tablets can be taken with food or on an empty stomach. If the medicine upsets your stomach, take it with food. Take your medicine at regular intervals. Do not take your medicine more often than directed. Take all of your medicine as directed even if you think your are better. Do not skip doses or stop your medicine early. Talk to your manager lpn regarding the use of this medicine in children. Special care may be needed. What side effects may I notice from receiving this medicine? Side effects that you should report to your doctor or health direct care staffer as soon as possible: allergic reactions like skin rash, itching or hives, swelling of the face, lips, or tongue confusion, nightmares or hallucinations dark urine difficulty breathing hearing loss irregular heartbeat or chest pain pain or difficulty passing urine redness, blistering, peeling or loosening of the skin, including inside the mouth white patches or sores in the mouth yellowing of the eyes or skin Side effects that usually do not require medical attention (report to your doctor or health direct care staffer if they continue or are bothersome): diarrhea dizziness, drowsiness headache stomach upset or vomiting tooth discoloration vaginal irritation What may interact with this medicine? Do not take this medicine with any of the following medications: lincomycin This medicine may also interact with the following medications: amiodarone antacids cyclosporine digoxin magnesium nelfinavir phenytoin warfarin What if I miss a dose? If you miss a dose, take it as soon as you can. If it is almost time for your next dose, take only that dose. Do not take double or extra doses. Where should I keep my medicine? Keep out of the reach of children. Store at room temperature between 15 and 30 degrees C (59 and 86 degrees F). Throw away any unused medicine after the expiration date. What should I tell my health care provider before I take this medicine? They need to know if you have any of these conditions: kidney disease liver disease irregular heartbeat or heart disease an unusual or allergic reaction to azithromycin, erythromycin, other macrolide antibiotics, foods, dyes, or preservatives or trying to get breast-feeding What should I watch for while using this medicine? Tell your doctor or health direct care staffer if your symptoms do not improve. Do not treat diarrhea with over the counter products. Contact your doctor if you have diarrhea that lasts more than 2 days or if it is severe and watery. This medicine can make you more sensitive to the sun. Keep out of the sun. If you cannot avoid being in the sun, wear protective clothing and use sunscreen. Do not use sun lamps or tanning beds/booths. You have been given the following additional information: Pneumonia (Adult) Ondansetron Oral disintegrating tablet Azithromycin Oral tablet (Electronically signed by Bo Saravia Dr. 11/29/2016 8:37)
--- NOTE | 2016-11-29 08:37 | ED MAR SUMMARY ---
..... Medication Administration Record [facility] [address] [place] [address] Patient: MARIA ELENA MCCALL Visit ID: [id number] 66y, M Weight: 90.2 kg Height/Length: 68 in BMI: 30.2 ALLERGIES: Penicillins Start 19:38 11/28/2016 Abdirahman Engle R.N., Stop 22:30 11/28/2016 Abdirahman Engle R.N. Medication Administered: IV NS (SALINE), Dose: IV Fluids over 60 minute(s), Rate: 999 mL/hr, Dispensed: 1000 mL bag, Site: #1 right hand. Medication Ordered: IV NS : initial bolus 1000 mL (1000 mL/hr), then 1000 mL/hr for X1 (NOW). Given 19:39 11/28/2016 Abdirahman Engle R.N. Medication Administered: ZOFRAN [IVP] (ONDANSETRON HCL), Dose: 4 mg IVP over 2 minute(s), Site: #1 right hand. Medication Ordered: Zofran IV 4 mg (NOW). Given 19:44 11/28/2016 Abdirahman Engle R.NJacqueline Medication Administered: FAMOTIDINE [IVP], Dose: 20 mg IVP over 20 minute(s), Site: #1 right hand. Medication Ordered: Famotidine IV 20 mg/50mL (NOW). Given 20:50 11/28/2016 Abdirahman Hanks R.N. Medication Administered: TORADOL [IVP], Dose: 30 mg IVP over 2 minute(s), Site: #1 right hand. Medication Ordered: Toradol IV 30 mg (NOW). Start 21:25 11/28/2016 Abdirahman Engle R.N., Stop 22:30 11/28/2016 Abdirahman Engle R.N. Medication Administered: AZITHROMYCIN [IVPB], Dose: 500 mg IVPB over 60 minute(s), Rate: 250 mL/hr, Dispensed: 250 mL bag, Site: #1 right hand. Medication Ordered: Azithromycin IV 500 mg/250 mL (NOW).
--- NOTE | 2016-11-29 08:37 | ED MED RECONCILIATION SUMMARY ---
Patient: MARIA ELENA MCCALL Medication Reconciliation Report [facility] VisitID: [id number] [place] [address] 66y, M Registration Date/Time: 11/28/2016 Weight: 90.2 kg Height/Length: 68 in. BMI: 30.2 ALLERGIES: Penicillins The patient's Home Medications are listed below: CONTINUE TAKING THE FOLLOWING MEDICATIONS: Aspirin Oral Citalopram Hydrobromide Oral Finasteride Oral Levothyroxine Sodium Oral Tamsulosin HCl Oral The source(s) of the original Home Medication information: Not obtained. The following Medications were given to the patient in the Emergency Department: IV NS IV Fluids bolus 0, then 999 mL/hr, administered: 11/28/2016 7:38:00 PM Zofran [IVP] IVP 4 mg, administered: 11/28/2016 7:39:00 PM Famotidine [IVP] IVP 20 mg, administered: 11/28/2016 7:44:00 PM Toradol [IVP] IVP 30 mg, administered: 11/28/2016 8:50:00 PM Azithromycin [IVPB] IVPB bolus 0, then 500 mg 250 mL/hr, administered: 11/28/2016 9:25:00 PM The following Medications were prescribed to the patient: Zofran (orally disintegrating tablets) 4 mg: take 1 orally every 6 hours as needed for nausea and vomiting. Dispense ten (10). Two refills. Substitution is permissible. -- Bo Saravia Dr. Azithromycin 250 mg tablets: take 1 orally every day for 4 days. Total course 4 days. No refills.(Loading dose given in ED) -- Bo Saravia Dr.
== END 2016-11-28 22:50 | disposition home or self-care (01) ==
LOC: ED SRH 18:29
DX: J15.9 Unspecified bacterial pneumonia (principal); R11.2 Nausea with vomiting, unspecified; E03.9 Hypothyroidism, unspecified; I10 Essential (primary) hypertension; K57.92 Diverticulitis of intestine, part unspecified, without perforation or abscess without bleeding; Z79.899 Other long term (current) drug therapy; Z79.82 Long term (current) use of aspirin; Z88.0 Allergy status to penicillin
CPT/HCPCS: 90065; 90074; 90100; 92031; 92235; 92530; 93004; 95059